=== PATIENT | male | born 1965 | race African-American/Black ===

== ENCOUNTER 2022-08-12 14:05 | Emergency (ER) | payer BC, SELFPAY ==
--- NOTE | ~2022-08-12 | CT_ITS ---
EXAMINATION: CT abdomen pelvis w con DATE: 08/12/2022 15:57 INDICATION: Right abdominal pain. TECHNIQUE: Computed tomography (CT) of the abdomen and pelvis was performed with 100 mL Omnipaque 350 intravenous contrast. Automated exposure control and iterative reconstruction technique were employe d. The dose-length product was 184.35 mGy-cm. COMPARISON: None. FINDINGS: The visualized portions of the lung bases demonstrate mild atelectasis. No pleural effusion . The heart size is normal. No pericardial effusion. There are cysts in the liver measuring up to 6 m m. The gallbladder, spleen, pancreas, and adrenal glands are normal. There are cysts in the kidneys m easuring up to 2.2 cm on the right. There are no dilated loops of bowel. The appendix is normal. Ther e is a small sliding hiatal hernia. There are no pathologically enlarged lymph nodes. There is no gamal e intraperitoneal fluid. There is mild lumbar spondylosis. IMPRESSION: 1. Small sliding hiatal hernia. Reviewed, dictated and finalized at location A.
--- NOTE | 2022-08-12 14:08 | ECG_ITS ---
Measurements Intervals [place] Rate: 93 P: 83 [place]: 137 QRS: 72 QRSD: 102 T: 38 QT: 339 QTc: 422 Interpretive Statements SINUS RHYTHM BASELINE ARTIFACT INCOMPLETE RIGHT BUNDLE BRANCH BLOCK VOLTAGE CRITERIA FOR LVH ABNORMAL ECG NONSPECIFIC T-WAVE ABNORMALITY NO PREVIOUS ECG AVAILABLE FOR COMPARISON Electronically Signed On 08-12-2022 15:25:42 CDT by Siddhartha Elliott M.D.
[2022-08-12 14:12] VITALS: BP 114/73; PULSE 99; RESP 14; TEMP 36.4; O2SAT 100
[2022-08-12 14:30] LABS: Basophils Percent Auto 0.5 % (0.2-1.2); Eosinophils Percent Auto 0.2 % (0-4.4); Hematocrit 48.9 % (42.0-52.0); Hemoglobin 15.9 g/dL (14.0-18.0); Immature Granulocyte Absolute 0.01 K/mm3 (0.00-0.031); Immature Granulocyte Percent A 0.2 % (0-0.5); Lymphocytes Absolute Auto 1.43 K/mm3 (0.9-3.2); Lymphocytes Percent Auto 25.3 % (18.3-44.2); Mean Corpuscular HGB Conc 32.5 g/dl (32-36); Mean Corpuscular Volume 86.2 fl (80-100); Mean Platelet Volume 10.4 fl (7.4-10.4); Monocytes Absolute Auto 0.7 K/mm3 (0.1-0.6); Monocytes Percent Auto 11.5 % (2.6-8.5); Neutrophils Absolute Auto 3.5 K/mm3 (1.3-6.7); Neutrophils Percent Auto 62.3 % (45.5-73.1); Platelet Count Result 183 k/mm3 (150-375); Red Blood Count 5.67 M/mm3 (4.6-6.20); Red Cell Distribution Width 14.1 % (11.5-14.5); White Blood Count 5.7 K/mm3 (4.5-10.0)
[2022-08-12 14:40] LABS: Alanine Aminotransferase 22 U/L (6-50); Albumin Level 4.7 g/dL (3.5-5.1); Alkaline Phosphatase 67 U/L (38-126); Anion Gap 13 mmol/L (8-16); Aspartate Amino Transferase 25 U/L (17-59); Bilirubin,Total 0.8 mg/dL (0.2-1.3); Blood Urea Nitrogen 9 mg/dL (9-20); Calcium 9.7 mg/dL (8.4-10.2); Carbon Dioxide 28 mmol/L (22-30); Chloride 100 mmol/L (98-107); Estimated Glomerular Filt Rate > 60; Glucose 107 mg/dL (65-110); Lipase 67 U/L (23-300); Potassium 3.9 mmol/L (3.4-5.0); Sodium 141 mmol/L (137-145)
--- NOTE | 2022-08-12 14:54 | ED.ABDPAIN ---
HPI - Abdominal Pain General Chief Complaint: Abdominal Pain Stated Complaint: dizzy, vomiting, abd pain Time Seen by Provider: 08/12/22 14:46 History of Present Illness HPI narrative: Pt presents with pain on right side of abdomen off and on for the last two days. Pt denies fever, nausea, vomiting or diarrhea. Pt denies injury or urinary symptoms. Nothing makes pain better or worse. Pain does not radiate. Related Data Allergies Allergy/AdvReac Type Severity Reaction Status Date / Time No Known Allergies Allergy Verified 08/12/22 15:13 Review of Systems Review of Systems: All systems reviewed & are unremarkable except as noted in HPI and below Exam Const: General: healthy appearing Nutritional Appearance: well nourished Orientation/consciousness: patient oriented x3 Limitations: no limitations HENMT: Head: normal to inspection Resp: Effort & Inspection: normal respiratory effort Auscultation: clear to auscultation bilaterally Cardio: Rate: regular rate Rhythm: regular rhythm GI: GI Palp: Yes Soft to palpation Auscultation: normal bowel sounds Other: miminal rid mid abdominal tenderness : General: Yes bladder normal to palpation Back/Spine/Pelvis: Back: no CVA tenderness Skin: General skin exam: normal color Rashes: no rashes Wounds: no wounds Neuro: General: patient oriented x3 Cranial nerves: Yes Nystagmus not present Speech: normal speech Extrem: General: normal to inspection Psych: Mental Status: mental status grossly normal Affect: normal affect Attitude: cooperative Course Vital Signs Vital signs: Vital Signs Temperature 97.6 F 08/12/22 14:12 Pulse Rate 99 08/12/22 14:12 Respiratory Rate 14 08/12/22 14:12 Blood Pressure 114/73 08/12/22 14:12 Pulse Oximetry 100 08/12/22 14:12 Oxygen Delivery Room Air 08/12/22 14:12 Temperature 97.6 F 08/12/22 14:12 Pulse Rate 99 08/12/22 14:12 Respiratory Rate 14 08/12/22 14:12 Blood Pressure 114/73 08/12/22 14:12 Pulse Oximetry 100 08/12/22 14:12 Oxygen Delivery Room Air 08/12/22 14:12 MDM - Abdominal Pain Lab Data Result diagrams: 08/12/22 14:23 08/12/22 14:23 Labs: Lab Results 08/12/22 08/12/22 08/12/22 Range/Units 14:23 14:23 15:29 WBC 5.7 (4.5-10.0) K/mm3 RBC 5.67 (4.6-6.20) M/mm3 Hgb 15.9 (14.0-18.0) g/dL Hct 48.9 (42.0-52.0) % MCV 86.2 (80-100) fl MCH 28.0 (26-34) pg MCHC 32.5 (32-36) g/dl RDW 14.1 (11.5-14.5) % Plt Count 183 (150-375) k/mm3 MPV 10.4 (7.4-10.4) fl Immature Gran % (Auto) 0.2 (0-0.5) % Neut % (Auto) 62.3 (45.5-73.1) % Lymph % (Auto) 25.3 (18.3-44.2) % Ness % (Auto) 11.5 H (2.6-8.5) % Eos % (Auto) 0.2 (0-4.4) % Baso % (Auto) 0.5 (0.2-1.2) % Lymph # (Auto) 1.43 (0.9-3.2) K/mm3 Ness # (Auto) 0.7 H (0.1-0.6) K/mm3 Eos # (Auto) 0.0 (0-0.3) K/mm3 Baso # (Auto) 0.0 (0.0-0.1) K/mm3 Abs Immat Gran (auto) 0.01 (0.00-0.031) K/mm3 Absolute Neuts (auto) 3.5 (1.3-6.7) K/mm3 Absolute Nucleated RBC 0.0 (0.0-0.012) K/mm3 Nucleated RBC % 0.0 (0.0-0.2) % Sodium 141 (137-145) mmol/L Potassium 3.9 (3.4-5.0) mmol/L Chloride 100 (98-107) mmol/L Carbon Dioxide 28 (22-30) mmol/L Anion Gap 13 (8-16) mmol/L BUN 9 (9-20) mg/dL Creatinine 1.00 (0.7-1.3) mg/dL Estim Creat Clear Calc Not Reportable Estimated GFR > 60 (59 - ) Glucose 107 (65-110) mg/dL Calcium 9.7 (8.4-10.2) mg/dL Total Bilirubin 0.8 (0.2-1.3) mg/dL AST 25 (17-59) U/L ALT 22 (6-50) U/L Alkaline Phosphatase 67 (38-126) U/L Total Protein 8.0 (6.3-8.2) g/dL Albumin 4.7 (3.5-5.1) g/dL Lipase 67 (23-300) U/L Urine Color Yellow (Yellow) Urine Appearance Clear (Clear) Urine pH 5.5 (5.0-9.0) Ur Specific [place] 1.010 (1.001-1.035) Urine Protein Negative (Negative) m
[2022-08-12 15:56] LABS: Appearance Urine Clear (Clear); Bilirubin Urine Negative (Negative); Blood Urine Trace-lysed (Negative); Color Urine Yellow (Yellow); Glucose Urine UA Negative (Negative); Ketones Urine Negative (Negative); Leukocyte Esterase Ur Negative LEU/UL (Negative); Nitrate Urine Negative (Negative); Protein Urine Negative (Negative); Urobilinogen Urine 0.2 mg/dL (<2.0); pH Urine 5.5 (5.0-9.0)
[2022-08-12 16:15] LABS: Bacteria Urine Trace /hpf; Mucus Urine Rare /lpf; RBC Urine 0-2 /hpf (0-2); Squamous Epithelial Cell Urine Rare /hpf (Few); WBC Urine 0-3 /hpf
[2022-08-12 16:23] LABS: Add Urine Microscopic? YES
[2022-08-12] MEDS: fentaNYL CITRATE INJ (*CRX) 100 MCG/2 ML VIAL 25 MCG IV PUSH (16:55)
== END 2022-08-12 17:10 | disposition home or self-care (01) ==
PROVIDERS: Emergency Medicine; Emergency Provider Emergency Medicine; PCP Internal Medicine
DX: K29.70 Gastritis, unspecified, without bleeding (principal); K44.9 Diaphragmatic hernia without obstruction or gangrene; I45.10 Unspecified right bundle-branch block; R94.31 Abnormal electrocardiogram [ECG] [EKG]
CPT/HCPCS: 36415; 74177; 80053; 81001; 83690; 85025; 93005; 96374; 99284; J3010; Q9967

== ENCOUNTER 2023-04-10 17:12 | Emergency (ER) | payer BC, SELFPAY ==
--- NOTE | ~2023-04-10 | CT_ITS ---
Clinical Indication: Dyspnea CT Scan of the Chest with Contrast: Technique: Contiguous sections were acquired throughout the chest after intravenous administration of 100 cc of Omnipaque 350. Dose reduction technique was used on this scan by utilizing automated expos ure control and iterative reconstruction technique. The dose-length product (DLP) was 182.19 mGy-cm. Findings: There is no evidence of any significant mediastinal, hilar or axillary lymphadenopathy. There is no f illing defect in the pulmonary arterial tree to suggest pulmonary embolus. There is no evidence of ao rtic dissection or aneurysm. There is no evidence of pleural or pericardial effusion. The lungs are clear, aside from calcified right upper lobe granuloma. Images through the upper abdomen reveal small hepatic cysts, stable since 08/12/2022. Impression: No evidence of pulmonary embolus, aortic dissection, or aortic aneurysm. No significant pulmonary abnormality. Reviewed, dictated and finalized at [facility]. Impression: No evidence of pulmonary embolus, aortic dissection, or aortic aneurysm. No significant pulmonary abnormality.
[2023-04-10 17:15] VITALS: RESP 18
[2023-04-10 17:21] VITALS: BP 112/65; PULSE 72; RESP 16; TEMP 36.8; O2SAT 100
--- NOTE | 2023-04-10 17:51 | ED.GENADULT ---
HPI - General Adult General Chief complaint: Unspecified <NADIR Salas Last Filed: 04/11/23 02:31> Stated complaint: trouble breathing/panic attack <NADIR Salas Last Filed: 04/11/23 02:31> Time Seen by Provider: 04/10/23 17:26 <NADIR Salas Last Filed: 04/11/23 02:31> Source: patient <NADIR Salas Last Filed: 04/11/23 02:31> Mode of arrival: ambulatory <NADIR Salas Last Filed: 04/11/23 02:31> Limitations: no limitations <NADIR Salas Last Filed: 04/11/23 02:31> History of Present Illness HPI narrative: This is a 57-year-old male who presents to the ED with chief complaint of anxiety and left hand pain. He is status post day 2 of his left wrist surgery done by Dr. Ellison. He reports having panic-like symptoms today and the previous day. Reports a 5 out of 10 pain in his hand is not alleviated at all by his [place] prescription. He reports rapid breathing and trouble breathing today which sent him to another facility. He was discharged in stable condition but feels like they did not do anything for him so he came here. Patient has additional complaints of left hand numbness. States he can only feel it when he squeezes his fingers. <NADIR Salas Last Filed: 04/11/23 02:31> Related Data Allergies/adverse reactions: Allergies Allergy/AdvReac Type Severity Reaction Status Date / Time No Known Allergies Allergy Verified 04/10/23 17:34 <Rivera Rizvi PA-C - Last Filed: 04/11/23 02:31> Review of Systems Review of Systems: CONSTITUTIONAL: Denies fever, chills, or sweats. EYES: Denies visual changes, redness, or discharge. ENT: Denies rhinorrhea, congestion, sore throat, or otalgia. CARDIOVASCULAR: Denies chest pain, palpitations, or edema. RESPIRATORY: Denies cough or dyspnea. GASTROINTESTINAL: Denies abdominal pain, nausea, vomiting, or diarrhea. GENITOURINARY: Denies dysuria or hematuria. SKIN: Denies rash or itching. MUSCULOSKELETAL: See HPI NEUROLOGIC: Denies headache, numbness, dizziness, or weakness. PSYCHIATRIC: See HPI <Rivera Rizvi PA-C - Last Filed: 04/11/23 02:31> Exam Narrative: GENERAL: Well-appearing, well-nourished, and in no acute distress. HEAD: Normocephalic, atraumatic. EYES: PERRLA and EOMI. ENT: Nares clear, no rhinorrhea or epistaxis. Mucous membranes moist. Oropharynx without tonsillar hypertrophy exudate or other lesions. NECK: Supple. No adenopathy or masses. CHEST: No respiratory distress. Clear to auscultation. No wheezes rales or rhonchi HEART: Regular rate and rhythm. No murmur heard. Normal peripheral pulses. ABDOMEN: Soft, nontender, nondistended, normal active bowel sounds. MSK: Left upper extremity: Soft compartments throughout the left arm. Significant tenderness at the surgery site. Wound is well intact. Radial pulse strong and symmetric with right. Right upper extremity: Benign normal range of motion. No edema. SKIN: Warm, dry, no rash. NEURO: Alert and oriented x3. No focal deficits. PSYCH: Normal mood and affect. <Rivera Rizvi PA-C - Last Filed: 04/11/23 02:31> Course Course Emergency Course: Discussed the case with Dr. Ellison (patient's orthopedic surgeon) who recommends upping his [place] dose to 10 mg at a time if we are able to discharge him in stable condition. We discussed that he has soft compartments and no evidence of compartment syndrome. <Rivera Rizvi PA-C - Last Filed: 04/11/23 02:31> WELLNESS GUIDE/PA Physician Supervision For this patient encounter, I reviewed the WELLNESS GUIDE or PA documentation, treatment plan, and medical decision making and I had [id number] time with this patient. I performed all aspects of the MDM as documented. <Nicole Man MD - Last Filed: 04/20/23 14:01> Vital Signs Vital signs: Vital Signs Respiratory Rate 18 04/10/23 17:15 Temperature 98.2 F 04/10/23 17:21 Pulse Rate 67 04/10/23 20:01 Respirat
--- NOTE | 2023-04-10 18:14 | ECG_ITS ---
Measurements Intervals [place] Rate: 70 P: 86 [place]: 144 QRS: 79 QRSD: 81 T: 68 QT: 388 QTc: 419 Interpretive Statements SINUS RHYTHM WITH SINUS ARRHYTHMIA COMPARED TO ECG 08/12/2022 14:15:50 NO SIGNIFICANT CHANGES Electronically Signed On 04-11-2023 12:14:44 CDT by Jeff Love M.D.
[2023-04-10] MEDS: HYDROmorphone HCL INJ (*CRX) 1 MG/ML SYR 0.5 MG IV PUSH (18:54)
[2023-04-10 18:59] LABS: Basophils Percent Auto 0.3 % (0.2-1.2); Eosinophils Percent Auto 0.3 % (0-4.4); Hematocrit 43.9 % (42.0-52.0); Hemoglobin 14.3 g/dL (14.0-18.0); Immature Granulocyte Absolute 0.02 K/mm3 (0.00-0.031); Immature Granulocyte Percent A 0.3 % (0-0.5); Lymphocytes Absolute Auto 1.33 K/mm3 (0.9-3.2); Lymphocytes Percent Auto 18.1 % (18.3-44.2); Mean Corpuscular HGB Conc 32.6 g/dl (32-36); Mean Corpuscular Volume 85.9 fl (80-100); Mean Platelet Volume 9.9 fl (7.4-10.4); Monocytes Absolute Auto 0.7 K/mm3 (0.1-0.6); Monocytes Percent Auto 9.4 % (2.6-8.5); Neutrophils Absolute Auto 5.3 K/mm3 (1.3-6.7); Neutrophils Percent Auto 71.6 % (45.5-73.1); Platelet Count Result 206 k/mm3 (150-375); Red Blood Count 5.11 M/mm3 (4.6-6.20); Red Cell Distribution Width 14.3 % (11.5-14.5); White Blood Count 7.4 K/mm3 (4.5-10.0)
[2023-04-10 19:08] LABS: Alanine Aminotransferase 16 U/L (6-50); Albumin Level 4.2 g/dL (3.5-5.1); Alkaline Phosphatase 71 U/L (38-126); Anion Gap 4 mmol/L (8-16); Aspartate Amino Transferase 22 U/L (17-59); Bilirubin,Total 0.6 mg/dL (0.2-1.3); Blood Urea Nitrogen 12 mg/dL (9-20); Calcium 8.8 mg/dL (8.4-10.2); Carbon Dioxide 33 mmol/L (22-30); Chloride 101 mmol/L (98-107); Estimated Glomerular Filt Rate > 60; Glucose 85 mg/dL (65-110); Potassium 4.1 mmol/L (3.4-5.0); Sodium 138 mmol/L (137-145)
[2023-04-10 19:20] LABS: Troponin I < 0.012 ng/mL (0.000-0.034)
[2023-04-10 19:50] VITALS: BP 117/62; PULSE 62; RESP 9; O2SAT 98
[2023-04-10 20:01] VITALS: BP 111/66; PULSE 67; RESP 10; O2SAT 98
== END 2023-04-10 20:42 | disposition home or self-care (01) ==
PROVIDERS: Emergency Provider Physician Assistant; PCP Internal Medicine
DX: G89.18 Other acute postprocedural pain (principal); M79.642 Pain in left hand; F41.9 Anxiety disorder, unspecified
CPT/HCPCS: 36415; 71275; 80053; 84484; 85025; 93005; 96374; 99284; J1170; Q9967

== ENCOUNTER 2023-04-11 10:27 | Emergency (ER) | payer BC, SELFPAY ==
[2023-04-11] VITALS (23 sets, daily range): BP systolic 100–120; BP diastolic 69–84; PULSE 53–91; RESP 11–20; TEMP 37; O2SAT 95–100
--- NOTE | ~2023-04-11 | XR_ITS ---
XR chest 1V portable DATE: 04/11/2023 11:56 INDICATION: Dyspnea TECHNIQUE: Portable upright AP chest on 04/2023 at 1150 hours COMPARISON: 04/10/2023 CTA chest FINDINGS: Normal heart size. No hilar or mediastinal enlargement. No pulmonary infiltrate or consolidation, pleural effusion or pulmonary vascular congestion or pneumo thorax is detected. IMPRESSION: No active cardiopulmonary disease Reviewed, dictated and finalized at location A.
--- NOTE | 2023-04-11 11:07 | ECG_ITS ---
Measurements Intervals [place] Rate: 54 P: 71 [place]: 141 QRS: 63 QRSD: 88 T: 45 QT: 427 QTc: 406 Interpretive Statements SINUS BRADYCARDIA POSSIBLE RIGHT VENTRICULAR CONDUCTION DELAY [RSR (QR) IN V1/V2] COMPARED TO ECG 04/10/2023 18:52:35 SINUS BRADYCARDIA NOW PRESENT Electronically Signed On 04-11-2023 12:18:08 CDT by Jeff Love M.D.
--- NOTE | 2023-04-11 11:08 | ED.DIZZY ---
HPI - Dizziness General Chief Complaint: Dizziness Stated Complaint: weakness post op? History of Present Illness HPI Narrative: 57-year-old male reports for evaluation of dizziness and shortness of breath that occurred while he was sitting on the couch prior to arrival. Patient states he had eaten breakfast and felt fine, went to sit on the couch and started to feel acutely dizzy and felt like he was gasping for air . Patient states he called 911, EMS got there and had to assist him onto the gurney. He states the shortness of breath has since resolved, however he still feels dizzy with sudden head movements. States he is not dizzy when he is laying still. He reports it feels like there are bubbles in his ear. Of note, patient had surgery on his left wrist by Dr. Ellison on 04/08 for a fractured wrist secondary to a fall that occurred in March. Since then, patient has been seen at [place] on 04/09 diagnosed with paresthesias of his left hand. He returned to [place] on 04/10 and was diagnosed with a panic attack, states he did not like his care there and therefore came to [facility] on the same day. While here patient had his cast removed and a splint replaced. There is no evidence of compartment syndrome. The provider spoke with Dr. Ellison on the phone who advised to increase patient's [place] prescriptions discharged home if he is in stable condition. Patient today is stating his arm feels okay, he still has numbness in his digits but states it is out as painful as it was. He denies fever, body aches, chills, chest pain, nausea, vomiting, diarrhea, abdominal pain, cough or congestion. His next appoint with Dr. Ellison is tomorrow. Related Data Allergies Allergy/AdvReac Type Severity Reaction Status Date / Time No Known Allergies Allergy Verified 04/10/23 17:34 Review of Systems Review of Systems: CONSTITUTIONAL: Denies fever, chills EYES: Denies visual changes, redness, or discharge. ENT: Denies rhinorrhea, congestion, sore throat, or otalgia. CARDIOVASCULAR: Denies chest pain, palpitations, or edema. RESPIRATORY: See HPI GASTROINTESTINAL: Denies abdominal pain, nausea, vomiting, or diarrhea. GENITOURINARY: Denies dysuria or hematuria. SKIN: Denies rash or itching. MUSCULOSKELETAL: Denies back pain, joint pain, or myalgia. NEUROLOGIC: See HPI PSYCHIATRIC: Denies anxiety or depression. Exam Narrative: GENERAL: Well-appearing, in no acute distress. Patient resting comfortably in exam bed. He is pleasant and conversational, speaking in full sentences. HEAD: Normocephalic EYES: PERRLA, EOMI ENT: Nares clear. Mucous membranes moist. Oropharynx without tonsillar hypertrophy exudate or other lesions. Bilateral TMs boyle, nonbulging, no effusions NECK: Supple. CHEST: No respiratory distress. Clear to auscultation, no adventitious breath sounds. HEART: Regular rate and rhythm. No murmur heard. Normal peripheral pulses. ABDOMEN: Soft, nontender, normal active bowel sounds. EXTREMITIES: Left arm placed in an OCL splint. Patient able to move his digits. Cap refill less than 2. Sensation intact. SKIN: Warm, dry, no rash. NEURO: No focal deficits. Alert and oriented x3. Cranial nerves II through XII intact. Strength 5/5 throughout. Sensation intact. PSYCH: Normal mood and affect. Course Course Emergency Course: 1256: Patient reevaluated. He states he still feels dizzy with quick head movements. He does appear to be orthostatic considering his heart rate went from 58 while supine to 91 while standing. Plan to administer a second liter of fluids and reevaluate. Vital Signs Vital signs: Vital Signs Temperature 98.6 F 04/11/23 10:30 Pulse Rate 67 04/11/23 10:30 Respiratory Rate 18 04/11/23 10:30 Blood Pressure 119/78 04/11/23 10:30 Pulse Oximetry 98 04/11/23 10:30 Oxygen Delivery Room Air 04/11/23 10:30 Temperature 98.6 F 04/11/23 10:30 Pulse Rate 58 L 04/11/23 13:47 Respiratory Rate 14 04/11/23 13:47
[2023-04-11 11:46] LABS: Appearance Urine Clear (Clear); Bilirubin Urine Negative (Negative); Blood Urine Negative (Negative); Color Urine Yellow (Yellow); Glucose Urine UA Negative (Negative); Ketones Urine Negative (Negative); Leukocyte Esterase Ur Negative LEU/UL (Negative); Nitrate Urine Negative (Negative); Protein Urine Negative (Negative); Specific Grav Ur 1.009 (1.001-1.035); pH Urine 7.5 (5.0-9.0)
[2023-04-11 11:48] LABS: Add Urine Microscopic? NO
[2023-04-11] MEDS: SODIUM CHLORIDE 0.9% IV 1,000 ML 999 ML IV CONT ×2 (11:52→13:30)
[2023-04-11] MEDS: MECLIZINE HCL 25 MG TABLET PO (11:53)
[2023-04-11] MEDS: LORazepam INJ (*CRX) 2 MG/ML VIAL 0.5 MG IV PUSH (11:53)
[2023-04-11 11:56] LABS: Alanine Aminotransferase 16 U/L (6-50); Albumin Level 4.2 g/dL (3.5-5.1); Alkaline Phosphatase 76 U/L (38-126); Anion Gap 2 mmol/L (8-16); Aspartate Amino Transferase 31 U/L (17-59); Bilirubin,Total 0.8 mg/dL (0.2-1.3); Blood Urea Nitrogen 10 mg/dL (9-20); Calcium 8.9 mg/dL (8.4-10.2); Carbon Dioxide 35 mmol/L (22-30); Chloride 101 mmol/L (98-107); Estimated CRCL calculation 74 ml/min; Estimated Glomerular Filt Rate > 60; Glucose 86 mg/dL (65-110); Potassium 3.9 mmol/L (3.4-5.0); Sodium 138 mmol/L (137-145)
[2023-04-11 11:57] LABS: Basophils Percent Auto 0.2 % (0.2-1.2); Eosinophils Percent Auto 0.6 % (0-4.4); Hematocrit 42.6 % (42.0-52.0); Hemoglobin 14.1 g/dL (14.0-18.0); Immature Granulocyte Absolute 0.02 K/mm3 (0.00-0.031); Immature Granulocyte Percent A 0.4 % (0-0.5); Lymphocytes Percent Auto 19.1 % (18.3-44.2); Mean Corpuscular HGB Conc 33.1 g/dl (32-36); Mean Corpuscular Hemoglobin 28.3 pg (26-34); Mean Corpuscular Volume 85.4 fl (80-100); Mean Platelet Volume 10.1 fl (7.4-10.4); Monocytes Absolute Auto 0.6 K/mm3 (0.1-0.6); Monocytes Percent Auto 10.7 % (2.6-8.5); Neutrophils Absolute Auto 3.6 K/mm3 (1.3-6.7); Platelet Count Result 206 k/mm3 (150-375); Red Blood Count 4.99 M/mm3 (4.6-6.20); Red Cell Distribution Width 14.2 % (11.5-14.5); White Blood Count 5.2 K/mm3 (4.5-10.0)
[2023-04-11 12:08] LABS: NT Pro B Type Natriuretic Pept 150 pg/mL (19.9-100); Troponin I < 0.012 ng/mL (0.000-0.034)
== END 2023-04-11 15:18 | disposition home or self-care (01) ==
PROVIDERS: Emergency Provider Physician Assistant; PCP Internal Medicine
DX: R42 Dizziness and giddiness (principal)
CPT/HCPCS: 36415; 71045; 80053; 81003; 83735; 83880; 84484; 85025; 93005; 96361; 96374; 99284; A9270; J2060; J7030

== ENCOUNTER 2023-12-31 11:05 | Emergency (ER) | payer MEDICAID, SELFPAY ==
[2023-12-31 11:24] VITALS: BP 124/71; PULSE 55; RESP 18; TEMP 36.6; O2SAT 100
--- NOTE | 2023-12-31 13:30 | PC.NURSE ---
Pt declines to be seen due to the wait time. IV initiated by EMS removed.
== END 2023-12-31 13:38 | disposition left against medical advice (07) ==
LOC: ANHED 13:33
DX: R42 Dizziness and giddiness (principal)
CPT/HCPCS: 99199

== ENCOUNTER 2024-11-26 23:35 | Emergency (ER) | payer BC, SELFPAY ==
--- NOTE | ~2024-11-26 | XR_ITS ---
Portable chest x-ray Comparison: 08/11/2023 Clinical History: Dyspnea Findings: Lungs are clear, without focal consolidation or pleural effusion. Possible COPD. Cardiome diastinal silhouette is stable. Bones and soft tissues are unremarkable. Impression: Possible COPD. Clear lungs. Reviewed, dictated and finalized at [facility]. ACER Impression: Possible COPD. Clear lungs.
--- NOTE | ~2024-11-26 | CT_ITS ---
CT of the Abdomen and Pelvis: Indication: Abdominal pain Technique: 2.5 mm axial scans were obtained through the abdomen and pelvis following intravenous adm inistration of 100 cc of Omnipaque 350. Dose reduction technique was used on this scan by utilizing a utomated exposure control and iterative reconstruction technique. The dose-length product (DLP) was 1 96.93 mGy-cm. COMPARISON: 08/12/2022 Findings: Scans through the lung bases are unremarkable. Multiple small hepatic cysts are unchanged. The spleen, pancreas, gallbladder, adrenals and kidneys a re within normal limits. No evidence of aortic aneurysm. No lymphadenopathy. No bowel obstruction or bowel wall thickening. There is no evidence to suggest acute appendicitis. Images through the pelvis were performed. Urinary bladder unremarkable. No pelvic mass seen. No ascit es. Impression: No acute abnormality evident. Reviewed, dictated and finalized at [facility]. OMER SERVICES MANAGER Impression: No acute abnormality evident.
[2024-11-26 23:36] VITALS: BP 110/73; PULSE 83; RESP 16; TEMP 37.2; O2SAT 100
--- NOTE | 2024-11-26 23:42 | ECG_ITS ---
Test Date: 2024-11-26 23:42:35 Measurements Intervals [place] Rate: 80 P: 80 ID: [id number] QRS: 68 QRSD: 84 T: 61 QT: 348 QTc: 402 Interpretive Statements SINUS RHYTHM No previous ECG available for comparison Electronically Signed On 11-27-2024 18:09:25 [employer]WDUST MACHINE OPERATOR by Yosef Kelly M.D.
[2024-11-26 23:44] VITALS: O2SAT 100
--- NOTE | 2024-11-26 23:48 | ED.ABDPAIN ---
HPI - Abdominal Pain General Chief Complaint: Abdominal Pain <NADIR Morillo Last Filed: 11/27/24 02:17> Stated Complaint: ABD PN/CP <NADIR Morillo Last Filed: 11/27/24 02:17> History of Present Illness HPI narrative: 59 y/o M presents to the ED via EMS from home for abdominal pain, shortness of breath, dry mouth, cough, congestion x1 day. Pt is reporting RUQ abd pain that started today. Cough, congestion and dyspnea that started yesterday. Denies chest pain, smoking, lower extremity edema, history of VTE, N/V/D. Patient states he recently picked [id number] decongestants but has not started taking them. <NADIR Morillo Last Filed: 11/27/24 02:17> Related Data Allergies/Adverse Reactions: Allergies Allergy/AdvReac Type Severity Reaction Status Date / Time No Known Allergies Allergy Verified 04/10/23 17:34 <NADIR Morillo Last Filed: 11/27/24 02:17> Review of Systems Review of Systems: All systems reviewed & are unremarkable except as noted in HPI and below <NADIR Morillo Last Filed: 11/27/24 02:17> Exam Narrative: GENERAL: Well-appearing, well-nourished, and in no acute distress. HEAD: Normocephalic, atraumatic. EYES: EOMI. ENT: Nares clear, no rhinorrhea or epistaxis. Mucous membranes moist. NECK: Supple. CHEST: Clear to auscultation. No respiratory distress. HEART: Regular rate and rhythm. No murmur heard. Normal peripheral pulses. ABDOMEN: Normoactive bowel sounds. Abdomen soft with tenderness in the left upper quadrant. No rebound, guarding or rigidity. No CVA tenderness EXTREMITIES: Normal range of motion. No edema. SKIN: Warm, dry, no rash. NEURO: No focal deficits. Alert and oriented x3 <NADIR Morillo Last Filed: 11/27/24 02:17> Course RUBBER PRODUCTION MACHINE OPERATOR/PA Physician Supervision For this patient encounter, I reviewed the RUBBER PRODUCTION MACHINE OPERATOR or PA documentation, treatment plan, and medical decision making and had [id number] time with this patient. I performed all aspects of the MDM as documented. <Alex Flynn MD - Last Filed: 11/27/24 06:43> Vital Signs Vital signs: Vital Signs Temperature 98.9 F 11/26/24 23:36 Pulse Rate 83 11/26/24 23:36 Respiratory Rate 16 11/26/24 23:36 Blood Pressure 110/73 11/26/24 23:36 Pulse Oximetry 100 11/26/24 23:36 Oxygen Delivery Room Air 11/26/24 23:36 Temperature 98.9 F 11/26/24 23:36 Pulse Rate 82 11/27/24 00:31 Respiratory Rate 21 H 11/27/24 00:31 Blood Pressure 110/73 11/26/24 23:36 Pulse Oximetry 100 11/27/24 00:31 Oxygen Delivery Room Air 11/26/24 23:44 <Perla Swan PA-C - Last Filed: 11/27/24 02:17> Vital Signs Temperature 98.9 F 11/26/24 23:36 Pulse Rate 83 11/26/24 23:36 Respiratory Rate 16 11/26/24 23:36 Blood Pressure 110/73 11/26/24 23:36 Pulse Oximetry 100 11/26/24 23:36 Oxygen Delivery Room Air 11/26/24 23:36 Temperature 98.9 F 11/26/24 23:36 Pulse Rate 82 11/27/24 00:31 Respiratory Rate 21 H 11/27/24 00:31 Blood Pressure 110/73 11/26/24 23:36 Pulse Oximetry 100 11/27/24 00:31 Oxygen Delivery Room Air 11/26/24 23:44 <Alex Flynn MD - Last Filed: 11/27/24 06:43> MDM - Abdominal Pain MDM Narrative Medical decision making narrative: 59-year-old male presents to the emergency department for 1 day of shortness of breath, cough, congestion, left upper quadrant abdominal pain, dry mouth. See HPI for further history. Vitals are stable. Patient resting comfortably in exam bed. See exam above. EKG shows normal sinus rhythm with a rate of 80 ppm, normal OK interval, normal QRS duration, normal QTC, no ischemic changes. Troponin undetectable. Chest x-ray without acute cardiopulmonary findings. Lab work shows no leukocytosis. Chemistries are largely unremarkable. Lipase is normal. BNP within normal limits. Influenza a is positive. CT abdomen pelvis shows large amount of stool in the colon with no bowel obstruction. There is fluid and gas-filled small bowel loops which could represent enteritis or ileus in the appropriate clinical setting. Clinically, ileus is more likely. Incidental findings include small hypodensities in the liver which may represent cysts, bilateral renal cysts, normal appendix, contracted gallbladder, phleboliths in the pelvis and prostatomegaly. Patient updated on workup. Influenza A and constipation/ileus consistent with presentation. Advised rest, increase fluid intake, supportive care. Will provide stool softeners and MiraLax. Advised follow-up with PCP. Discussed return precautions. He is agreeable to plan verbalized understanding. Discharged in stable condition. <Perla Swan PA-C - Last Filed: 11/27/24 02:17> Lab Data Result diagrams: 11/26/24 23:47 11/26/24 23:47 <Perla Swan PA-C - Last Filed: 11/27/24 02:17> Labs: Lab Results 11/26/24 11/27/24 Range/Units 23:47 01:12 WBC 4.8 (4.5-10.0) K/mm3 RBC 4.76 (4.6-6.20) M/mm3 Hgb 13.8 L (14.0-18.0) g/dL Hct 42.1 (42.0-52.0) % MCV 88.4 (80-100) fl MCH 29.0 (26-34) pg MCHC 32.8 (32-36) g/dl RDW 14.4 (11.5-14.5) % Plt Count 154 (150-375) k/mm3 MPV 10.7 H (7.4-10.4) fl Immature Gran % (Auto) 0.6 H (0-0.5) % Neut % (Auto) 64.5 (45.5-73.1) % Lymph % (Auto) 18.0 L (18.3-44.2) % Tripp % (Auto) 15.9 H (2.6-8.5) % Eos % (Auto) 0.4 (0-4.4) % Baso % (Auto) 0.6 (0.2-1.2) % Lymph # (Auto) 0.86 L (0.9-3.2) K/mm3 Tripp # (Auto) 0.8 H (0.1-0.6) K/mm3 Eos # (Auto) 0.0 (0-0.3) K/mm3 Baso # (Auto) 0.0 (0.0-0.1) K/mm3 Abs Immat Gran (auto) 0.03 (0.00-0.031) K/mm3 Absolute Neuts (auto) 3.1 (1.3-6.7) K/mm3 Absolute Nucleated RBC 0.000 (0.0-0.012) K/mm3 Nucleated RBC % 0.0 (0.0-0.2) % PT 13.6 (11.1-14.7) Seconds INR 1.0 APTT 29.8 (22.3-36.8) Seconds Sodium 133 L (137-145) mmol/L Potassium 3.9 (3.4-5.0) mmol/L Chloride 97 L (98-107) mmol/L Carbon Dioxide 31 H (22-30) mmol/L Anion Gap 5 (4-12) mmol/L BUN 14 (9-20) mg/dL Creatinine 0.83 (0.7-1.3) mg/dL Estim Creat Clear Calc 74 ml/min Estimated GFR > 60 (59 - ) Glucose 94 (65-110) mg/dL Calcium 8.4 (8.4-10.2) mg/dL Total Bilirubin 0.6 (0.2-1.3) mg/dL AST 27 (17-59) U/L ALT 17 (6-50) U/L Alkaline Phosphatase 60 (38-126) U/L Troponin I < 0.012 (0.000-0.034) ng/mL NT-Pro-B Natriuret Pep 44 (19.9-100) pg/mL Total Protein 7.0 (6.3-8.2) g/dL Albumin 4.2 (3.5-5.1) g/dL Lipase 154 (23-300) U/L Urine Color Yellow (Yellow) Urine Appearance Clear (Clear) Urine pH 7.5 (5.0-9.0) Ur Specific Pel[place] 1.009 (1.001-1.035) Urine Protein Negative (Negative) mg/dL Urine Glucose (UA) Negative (Negative) mg/dL Urine Ketones Negative (Negative) mg/dL Ur Blood (Man) Negative (Negative) Urine Nitrate Negative (Negative) Urine Bilirubin Negative (Negative) Urine Urobilinogen 1.0 (<2.0) mg/dL Leukocyte Esterase Rfl Negative (Negative) URVASHI/UL Influenza A (RT-PCR) Positive A (Negative) Influenza B (RT-PCR) Negative (Negative) RSV (RT-PCR) Negative (Negative) SARS-CoV-2 RNA (RT-PCR) Negative (Negative) <Perla Swan PA-C - Last Filed: 11/27/24 02:17> Lab Results 11/26/24 11/27/24 Range/Units 23:47 01:12 WBC 4.8 (4.5-10.0) K/mm3 RBC 4.76 (4.6-6.20) M/mm3 Hgb 13.8 L (14.0-18.0) g/dL Hct 42.1 (42.0-52.0) % MCV 88.4 (80-100) fl MCH 29.0 (26-34) pg MCHC 32.8 (32-36) g/dl RDW 14.4 (11.5-14.5) % Plt Count 154 (150-375) k/mm3 MPV 10.7 H (7.4-10.4) fl Immature Gran % (Auto) 0.6 H (0-0.5) % Neut % (Auto) 64.5 (45.5-73.1) % Lymph % (Auto) 18.0 L (18.3-44.2) % Tripp % (Auto) 15.9 H (2.6-8.5) % Eos % (Auto) 0.4 (0-4.4) % Baso % (Auto) 0.6 (0.2-1.2) % Lymph # (Auto) 0.86 L (0.9-3.2) K/mm3 Tripp # (Auto) 0.8 H (0.1-0.6) K/mm3 Eos # (Auto) 0.0 (0-0.3) K/mm3 Baso # (Auto) 0.0 (0.0-0.1) K/mm3 Abs Immat Gran (auto) 0.03 (0.00-0.031) K/mm3 Absolute Neuts (auto) 3.1 (1.3-6.7) K/mm3 Absolute Nucleated RBC 0.000 (0.0-0.012) K/mm3 Nucleated RBC % 0.0 (0.0-0.2) % PT 13.6 (11.1-14.7) Seconds INR 1.0 APTT 29.8 (22.3-36.8) Seconds Sodium 133 L (137-145) mmol/L Potassium 3.9 (3.4-5.0) mmol/L Chloride 97 L (98-107) mmol/L Carbon Dioxide 31 H (22-30) mmol/L Anion Gap 5 (4-12) mmol/L BUN 14 (9-20) mg/dL Creatinine 0.83 (0.7-1.3) mg/dL Estim Creat Clear Calc 74 ml/min Estimated GFR > 60 (59 - ) Glucose 94 (65-110) mg/dL Calcium 8.4 (8.4-10.2) mg/dL Total Bilirubin 0.6 (0.2-1.3) mg/dL AST 27 (17-59) U/L ALT 17 (6-50) U/L Alkaline Phosphatase 60 (38-126) U/L Troponin I < 0.012 (0.000-0.034) ng/mL NT-Pro-B Natriuret Pep 44 (19.9-100) pg/mL Total Protein 7.0 (6.3-8.2) g/dL Albumin 4.2 (3.5-5.1) g/dL Lipase 154 (23-300) U/L Urine Color Yellow (Yellow) Urine Appearance Clear (Clear) Urine pH 7.5 (5.0-9.0) Ur Specific Pelion 1.009 (1.001-1.035) Urine Protein Negative (Negative) mg/dL Urine Glucose (UA) Negative (Negative) mg/dL Urine Ketones Negative (Negative) mg/dL Ur Blood (Man) Negative (Negative) Urine Nitrate Negative (Negative) Urine Bilirubin Negative (Negative) Urine Urobilinogen 1.0 (<2.0) mg/dL Leukocyte Esterase Rfl Negative (Negative) URVASHI/UL Influenza A (RT-PCR) Positive A (Negative) Influenza B (RT-PCR) Negative (Negative) RSV (RT-PCR) Negative (Negative) SARS-CoV-2 RNA (RT-PCR) Negative (Negative) <Alex Flynn MD - Last Filed: 11/27/24 06:43> Imaging Data Radiologist's impression: ITS Impressions Chest X-Ray 11/27/24 05:28 Impression: Possible COPD. Clear lungs. Abdomen/Pelvis CT 11/27/24 05:29 Impression: No acute abnormality evident. <Perla Swan PA-C - Last Filed: 11/27/24 02:17> ITS Impressions Chest X-Ray 11/27/24 05:28 Impression: Possible COPD. Clear lungs. Abdomen/Pelvis CT 11/27/24 05:29 Impression: No acute abnormality evident. <Alex Flynn MD - Last Filed: 11/27/24 06:43> Discharge Plan Discharge Clinical Impression: Influenza A, Ileus, Liver mass, Renal cyst <Perla Swan PA-C - Last Filed: 11/27/24 02:17> Patient Disposition: Home, Self-Care <Perla Swan PA-C - Last Filed: 11/27/24 02:17> Condition: Stable <Perla Swan PA-C - Last Filed: 11/27/24 02:17> Instructions: Antibiotic Form, Influenza (DC), Ileus (ED) <Perla Swan PA-C - Last Filed: 11/27/24 02:17> Additional Instructions: Your evaluated in the emergency department for cough, congestion, dry mouth, abdominal pain. He tested positive for the flu. The CT scan shows constipation. Please rest, take Tylenol as needed for body aches and pain, drink plenty of fluids including water, Gatorade and Pedialyte. Please use stool softeners and MiraLax as directed to initiate a bowel movement. Follow up with her primary care provider. Incidentally your found him cysts in your liver and kidneys that need to be followed by her PCP. Return to the emergency department if you develop fever 100.4 or higher, you are unable to tolerate food or fluids, you develop worsening abdominal pain, or other concerning symptoms. <Perla Swan PA-C - Last Filed: 11/27/24 02:17> Patient Language: Pashto <Perla Swan PA-C - Last Filed: 11/27/24 02:17> Prescriptions: New docusate sodium 100 mg capsule 100 mg PO BID Qty: 60 0RF polyethylene glycol 3350 17 gram/dose powder 17 g PO BID Qty: 119 0RF No Action dicyclomine 10 mg capsule 20 mg PO QID Qty: 20 0RF famotidine [Pepcid] 20 mg tablet 20 mg PO BID Qty: 30 0RF ondansetron 4 mg tablet,disintegrating 4 mg PO Q8H PRN (Reason: nausea and vomiting) Qty: 14 0RF meclizine 25 mg tablet 25 mg PO BID PRN (Reason: dizziness) Qty: 14 0RF <Perla Swan PA-C - Last Filed: 11/27/24 02:17> Follow-up/Referrals: UNKNOWN,DOCTOR [Primary Care Provider] - <Perla Swan PA-C - Last Filed: 11/27/24 02:17>
[2024-11-26] MEDS: SODIUM CHLORIDE 0.9% IV 1,000 ML 999 ML IV CONT (23:51)
[2024-11-27 00:28] LABS: Basophils Percent Auto 0.6 % (0.2-1.2); Eosinophils Percent Auto 0.4 % (0-4.4); Hematocrit 42.1 % (42.0-52.0); Hemoglobin 13.8 g/dL (14.0-18.0); Immature Granulocyte Absolute 0.03 K/mm3 (0.00-0.031); Immature Granulocyte Percent A 0.6 % (0-0.5); Lymphocytes Absolute Auto 0.86 K/mm3 (0.9-3.2); Mean Corpuscular HGB Conc 32.8 g/dl (32-36); Mean Corpuscular Volume 88.4 fl (80-100); Mean Platelet Volume 10.7 fl (7.4-10.4); Monocytes Absolute Auto 0.8 K/mm3 (0.1-0.6); Monocytes Percent Auto 15.9 % (2.6-8.5); Neutrophils Absolute Auto 3.1 K/mm3 (1.3-6.7); Neutrophils Percent Auto 64.5 % (45.5-73.1); Platelet Count Result 154 k/mm3 (150-375); Red Blood Count 4.76 M/mm3 (4.6-6.20); Red Cell Distribution Width 14.4 % (11.5-14.5); White Blood Count 4.8 K/mm3 (4.5-10.0)
[2024-11-27 00:31] VITALS: PULSE 82; RESP 21; O2SAT 100
[2024-11-27 00:37] LABS: Partial Thromboplastin Time 29.8 Seconds (22.3-36.8); Prothrombin Time 13.6 Seconds (11.1-14.7)
[2024-11-27 00:42] LABS: Alanine Aminotransferase 17 U/L (6-50); Albumin Level 4.2 g/dL (3.5-5.1); Alkaline Phosphatase 60 U/L (38-126); Anion Gap 5 mmol/L (4-12); Aspartate Amino Transferase 27 U/L (17-59); Bilirubin,Total 0.6 mg/dL (0.2-1.3); Blood Urea Nitrogen 14 mg/dL (9-20); Calcium 8.4 mg/dL (8.4-10.2); Carbon Dioxide 31 mmol/L (22-30); Chloride 97 mmol/L (98-107); Estimated CRCL calculation 74 ml/min; Estimated Glomerular Filt Rate > 60; Glucose 94 mg/dL (65-110); Lipase 154 U/L (23-300); Potassium 3.9 mmol/L (3.4-5.0); Sodium 133 mmol/L (137-145)
[2024-11-27 01:18] LABS: NT Pro B Type Natriuretic Pept 44 pg/mL (19.9-100); Troponin I < 0.012 ng/mL (0.000-0.034)
[2024-11-27 01:22] LABS: Add Urine Microscopic? NO; Appearance Urine Clear (Clear); Bilirubin Urine Negative (Negative); Blood Urine Negative (Negative); Color Urine Yellow (Yellow); Glucose Urine UA Negative (Negative); Ketones Urine Negative (Negative); Leukocyte Esterase Ur Negative LEU/UL (Negative); Nitrate Urine Negative (Negative); Protein Urine Negative (Negative); Specific Grav Ur 1.009 (1.001-1.035); pH Urine 7.5 (5.0-9.0)
[2024-11-27 01:58] LABS: Influenza A QL RT-PCR Positive (Negative); Influenza B QL RT-PCR Negative (Negative); RSV RNA, RT-PCR Negative (Negative); SARS-CoV-2 RNA PCR Negative (Negative)
[2024-11-27] MEDS: ACETAMINOPHEN 500 MG TABLET 1000 MG PO (02:17)
--- OUTSIDE RECORDS SUMMARY | 2024-11-30 11:05 | XMS_ITS | CONTINUITY OF CARE DOCUMENT ---
Author Name gabriel rios Address Unknown Organization [facility] Address [address] [place] [address] Phone [phone] Care Team Providers Care Tooth Grinder Name Role Phone José Miguel RODRIGUEZ, Didi Unavailable TATI SCHULZ Unavailable [phone] TATI SCHULZ Unavailable [phone] INSURANCE PROVIDERS Payer name Policy type / Coverage type [place] red democrat ID [facility] Medicaid [id number]
--- OUTSIDE RECORDS SUMMARY | 2024-11-30 11:05 | XMS_ITS ---
Author Organization [facility] Address [address] [place] [address] Phone Care Team Providers Care Entertainer & Comic Name Role Phone HOPPER VOLUNTEER SERVICES ASSISTANT, TATI Primary Care Provider [phone] [address] RODRIGUEZ, MANUEL Sandhu [phone] Plan of Treatment No Plan of Treatment Recorded Assessments Includes: Assessments for all patient encounters No Assessments Recorded Medical Equipment - Implanted Devices Includes: Current and historical Devices No Medical Equipment Recorded Medications Administered Includes: Administered Medications in patient's chart No Administered Medications Recorded Results Includes: Results from 11/30/2023 through 11/30/2024 No Results Recorded For Specified Dates History of Present Illness History of Present Illness not supported for this document type No History of Present Illness Recorded Social History No Social History Recorded - Smoking Status Unknown Medical History Includes: Medical History in patient's chart No Medical History Recorded Family History Includes: Family History in patient's chart No Family History Recorded Review of Systems Review of Systems not supported for this document type No Review of Systems Recorded Mental Status No Mental Status Recorded Functional Status No Functional Status Recorded Physical Exam Physical Exam not supported for this document type No Physical Exam Recorded Insurance Includes: Active Insurance Policies Plan Name Member ID Group # Subscriber Relationship Effect seth Dates 1 - [facility] PLANS [id number] BRIAN BOSE Self Clinical Notes Includes: Signed Clinical Notes starting from 11/27/2022 No Clinical Notes Recorded
== END 2024-11-27 02:29 | disposition home or self-care (01) ==
PROVIDERS: Emergency Provider Physician Assistant
DX: J10.1 Influenza due to other identified influenza virus with other respiratory manifestations (principal); K56.7 Ileus, unspecified; R16.0 Hepatomegaly, not elsewhere classified; N28.1 Cyst of kidney, acquired; Z20.822 Contact with and (suspected) exposure to COVID-19; R91.8 Other nonspecific abnormal finding of lung field
CPT/HCPCS: 36415; 71045; 74177; 80053; 81003; 83690; 83880; 84484; 85025; 85610; 85730; 87637; 93005; 96360; 99284; A9270; J7030; Q9967